=== PATIENT | female | born 1965 | race Caucasian/White ===

== ENCOUNTER 2019-10-17 09:19 | Outpatient (CLI) | payer OTHER ==
--- NOTE | 2019-10-17 14:10 | MRI ---
EXAM: MRI of the abdomen without and with contrast COMPARISON: None HISTORY: Abnormal LFTs and right-sided abdominal pain TECHNIQUE: Multiplanar multi sequence MR images were taken of the abdomen without and with IV contras t. [An MRCP was performed.] FINDINGS: Liver: No intrahepatic ductal dilatation. Small 1.2 cm focus of high T2 signal in the left lobe of th e liver demonstrates peripheral puddling and centripetal filling consistent with a small hemangioma. Normal signal without dropout on out of phase images. No abnormal enhancement. Gallbladder: A small 2 to 3 mm filling defect in the dependent aspect of the gallbladder may resent a small gallstone. Common bile duct: Normal caliber without filling defects Adrenal glands: Unremarkable. Kidneys: No hydronephrosis or focal renal lesions. No abnormal areas of enhancement. Spleen: Unremarkable. Pancreas: Unremarkable. No abnormal enhancement. Retroperitoneum: No enlarged lymph nodes Bones: No marrow signal abnormality. IMPRESSION: 1. Possible small gallstone within the gallbladder. 2. Hepatic hemangioma
== END 2019-10-17 09:20 | disposition home or self-care (01) ==
LOC: SCSMRI 09:19
PROVIDERS: ATTEND Internal Medicine Gastroenterology
DX: R10.9 Unspecified abdominal pain (principal); R94.5 Abnormal results of liver function studies; D18.03 Hemangioma of intra-abdominal structures
CPT/HCPCS: 74183

== ENCOUNTER 2020-01-09 16:05 | Inpatient (IN) | payer OTHER ==
[2020-01-09 18:06] LABS: #Basophils 0.1 thou/uL (0.0-0.2); #Eosinphils 0.2 thou/uL (0.0-0.7); #Lymphocytes 2.3 thou/uL (1.20-3.40); #Neutrophils 4.7 thou/uL (1.40-6.50); %Basophils 1.4 % (0.0-1.0); %Eosinophils 2.1 % (0.0-10.0); %Lymphocytes 27.5 % (21.0-51.0); %Monocytes 12.3 % (0.0-10.0); %Neutrophils 56.7 % (42.0-75.0); Hemoglobin 13.3 g/dL (12.0-16.0); Mean Corpuscular HGB CONC 33.7 g/dL (32.0-36.0); Mean Corpuscular Volume 98.1 fL (78.0-98.0); Mean Platelet Volume 8.4 fL (7.4-10.4); Platelet Count 200 thou/uL (130-400); RBC Distribution Width 13.8 % (11.5-14.5); Red Blood Cell (RBC) Count 4.02 mill/uL (4.20-5.40); White Blood Cell (WBC) Count 8.2 thou/uL (4.8-10.8)
--- NOTE | 2020-01-09 18:06 | ULT ---
EXAM: Right upper quadrant ultrasound PROVIDED CLINICAL HISTORY: Abdominal pain COMPARISON: None FINDINGS: Visualized portions of the pancreas appear normal. Liver demonstrates no mass or intrahepatic biliary ductal dilatation. Common duct is nondilated. Gallbladder demonstrates gallstones, appearing decompressed. Right kidney demonstrates no hydronephrosis or mass. IMPRESSION: Decompressed gallbladder. Gallstones.
[2020-01-09 18:33] LABS: ALT (SGPT) 1407 U/L (8-55); AST (SGOT) 1678 U/L (5-34); Albumin 3.6 g/dL (3.5-5.0); Alkaline Phosphatase 465 U/L (40-110); Anion Gap 12 mmol/L (10-20); BUN (Urea Nitrogen) 8 mg/dL (9.8-20.1); Bilirubin, Total 1.9 mg/dL (0.2-1.2); Calc. Creatinine Clearance 0 mL/min (70-130); Calcium 9.1 mg/dL (7.8-10.44); Carbon Dioxide 22 mmol/L (22-29); Chloride 108 mmol/L (98-107); Estimated GFR-MDRD 81; Globulin 4.4 g/dL (2.4-3.5); Glucose 94 mg/dL (70-105); Lipase 750 U/L (8-78); Potassium 3.8 mmol/L (3.5-5.1); Sodium 138 mmol/L (136-145)
[2020-01-09] MEDS ORDERED: Morphine 4 MG/ML VIAL ONE (19:46)
[2020-01-09] MEDS ORDERED: Ondansetron PF 4 MG/2 ML Vial ONE (19:47)
[2020-01-09 20:26] LABS: Bacteria/HPF None Seen HPF (None Seen); Bilirubin Negative (Negative); Blood, Urine Negative (Negative); Clarity Clear (Clear); Glucose, Urine (Dipstick) Normal (Negative); Leukocyte 250 Leu/uL (Negative); Nitrite Negative (Negative); Protein, Urine (Dipstick) 20 mg/dL (Neg-Trace); Squamous Epithelial 0-3 HPF (0-3); WBC/HPF 21-50 HPF (0-3)
[2020-01-09] MEDS ORDERED: Morphine 4 MG/ML VIAL SLOW IVP PRN (21:58)
[2020-01-09] MEDS ORDERED: Ondansetron PF 4 MG/2 ML Vial IVP PRN (21:58)
[2020-01-09] MEDS ORDERED: Ondansetron ODT 4 MG TAB SL PRN (21:58)
[2020-01-09 22:07] VITALS: BMI 25.8
[2020-01-10] MEDS: Lactated Ringer's 1,000 ML IV SCH ×2 (00:08→06:58)
[2020-01-10] MEDS ORDERED: FLU VACC QS2019-20(6MOS UP)/PF 60 MCG/0.5 ML SYRINGE IM ONE (09:00)
[2020-01-10] MEDS ORDERED: Morphine 2 MG/ML SYRINGE SLOW IVP PRN (09:43)
[2020-01-10] MEDS ORDERED: Ondansetron PF 4 MG/2 ML Vial IVP PRN (09:43)
[2020-01-10] MEDS ORDERED: Morphine 4 MG/ML VIAL SLOW IVP PRN (09:43)
[2020-01-10 09:58] LABS: #Basophils 0.1 thou/uL (0.0-0.2); #Eosinphils 0.2 thou/uL (0.0-0.7); #Lymphocytes 1.8 thou/uL (1.20-3.40); #Neutrophils 4.8 thou/uL (1.40-6.50); %Basophils 1.3 % (0.0-1.0); %Eosinophils 2.1 % (0.0-10.0); %Lymphocytes 23.2 % (21.0-51.0); %Monocytes 12.6 % (0.0-10.0); %Neutrophils 60.7 % (42.0-75.0); Hemoglobin 12.2 g/dL (12.0-16.0); Mean Corpuscular HGB CONC 33.3 g/dL (32.0-36.0); Mean Corpuscular Hemoglobin 32.8 pg (27.0-31.0); Mean Corpuscular Volume 98.6 fL (78.0-98.0); Mean Platelet Volume 8.5 fL (7.4-10.4); Platelet Count 183 thou/uL (130-400); RBC Distribution Width 13.9 % (11.5-14.5); Red Blood Cell (RBC) Count 3.72 mill/uL (4.20-5.40); White Blood Cell (WBC) Count 7.9 thou/uL (4.8-10.8)
[2020-01-10] MEDS ORDERED: Pantoprazole 40 MG VIAL IVP SCH (10:15)
[2020-01-10 10:22] LABS: ALT (SGPT) 1292 U/L (8-55); AST (SGOT) 1751 U/L (5-34); Albumin 3.1 g/dL (3.5-5.0); Alkaline Phosphatase 390 U/L (40-110); Anion Gap 12 mmol/L (10-20); BUN (Urea Nitrogen) 9 mg/dL (9.8-20.1); Bilirubin, Direct 1.5 mg/dL (0.1-0.3); Bilirubin, Total 2.2 mg/dL (0.2-1.2); Calc. Creatinine Clearance 107 mL/min (70-130); Calcium 8.7 mg/dL (7.8-10.44); Carbon Dioxide 22 mmol/L (22-29); Chloride 107 mmol/L (98-107); Estimated GFR-MDRD 85; Glucose 75 mg/dL (70-105); Lipase 346 U/L (8-78); Potassium 4.3 mmol/L (3.5-5.1); Sodium 137 mmol/L (136-145)
--- NOTE | 2020-01-10 10:50 | HP ---
CHIEF COMPLAINT: Mid epigastric and right upper quadrant pain, nausea. HISTORY OF PRESENT ILLNESS: This is a 54-year-old female, who developed upper abdominal pain and nausea in August, so they did an ultrasound that showed a probable polyp in the gallbladder, but her LFTs were bumped. So, they did an MRCP, it showed a small filling defect in the dependent gallbladder, possible stone. She was doing fine until yesterday when she developed recurrence of the pain, but it was worse. She went to the GI clinic, where they repeated the LFTs and they were bumped, so she was sent to the ER. An ultrasound was performed that showed this time definite gallstones. PAST MEDICAL HISTORY: Obesity, hyperlipidemia, and hypothyroidism. PAST SURGICAL HISTORY: She had a hysterectomy 10 years ago and arm surgery. MEDICATIONS: 1. Atorvastatin. 2. Levothyroxine. ALLERGIES: NO KNOWN DRUG ALLERGIES. SOCIAL HISTORY: She is , unemployed. No tobacco or alcohol. FAMILY HISTORY: Noncontributory. PHYSICAL EXAMINATION: VITAL SIGNS: Temperature 98.4, pulse 74, and blood pressure 106/67. GENERAL: She is awake and alert, in no apparent distress. She says her pain is better. HEENT: No jaundice. LUNGS: Clear. HEART: Regular rate and rhythm. ABDOMEN: Obese, soft, mildly tender in the right upper quadrant. No palpable mass. EXTREMITIES: Unremarkable. LABORATORY DATA: Her white count is 8.2, H and H are 13 and 39, and platelet count 200. Her electrolytes are fine, but her bilirubin is 1.9, AST of 1678, ALT of 1407, alkaline phosphatase of 465, and lipase is 750. ASSESSMENT: Possible biliary pancreatitis, but she is improved. PLAN: GI consult. We will repeat their LFTs. If they are getting better, would recommend lap jake with cholangiogram. If they are worse, I would recommend ERCP. Job ID: [id number]
[2020-01-10] MEDS ORDERED: Rocuronium Bromide 10 MG/ML (10ML VIAL) ONE (11:01)
[2020-01-10] MEDS ORDERED: PROPOFOL 200 MG/20 ML VIAL ONE (11:01)
[2020-01-10] MEDS ORDERED: Dexamethasone 20 MG/5 ML VIAL ONE (11:01)
[2020-01-10] MEDS ORDERED: PHENYLEPHRINE-NS 100 MCG/ML 10 ML SYRINGE ONE (11:01)
[2020-01-10] MEDS ORDERED: Lidocaine 1% PF 5 ML VIAL ONE (11:01)
[2020-01-10] MEDS ORDERED: Glycopyrrolate 0.2 MG/ML 5 ML SYRINGE ONE (11:01)
[2020-01-10] MEDS ORDERED: Ondansetron PF 4 MG/2 ML Vial ONE (11:01)
[2020-01-10] MEDS ORDERED: Lidocaine 2% Jelly 5 ML TUBE ONE (11:23)
[2020-01-10] MEDS ORDERED: Midazolam HCl 2 mg/2 ml Vial ONE (11:23)
[2020-01-10] MEDS ORDERED: Fentanyl 100 MCG/2 ML VIAL ONE (11:23)
[2020-01-10] MEDS ORDERED: CEFAZOLIN 2 GM in Premix Bag 1 BAG IVPB SCH ×2 (11:30→13:15)
[2020-01-10] MEDS ORDERED: Iothalamate Meglumine 60% 50 ML VIAL FS ONE (11:30)
[2020-01-10] MEDS ORDERED: Indomethacin 50 MG SUPP ONE (11:36)
[2020-01-10] MEDS ORDERED: Promethazine HCl 25 MG/ML VIAL IM PRN (13:10)
[2020-01-10] MEDS ORDERED: Ondansetron HCl/PF 4 MG/2 ML Vial IVP PRN (13:10)
[2020-01-10] MEDS ORDERED: Promethazine HCl 25 MG/ML VIAL SLOW IVP PRN (13:10)
--- NOTE | 2020-01-10 13:51 | OP ---
DATE OF PROCEDURE: 01/10/2020 PROCEDURE PERFORMED: Endoscopic retrograde cholangiopancreatography with sphincterotomy. PREOPERATIVE DIAGNOSES: Gallstone pancreatitis and increasing bilirubin. DESCRIPTION OF PROCEDURE: Informed consent was obtained from the patient. She was sedated with general anesthesia and placed in the prone position. The duodenoscope was advanced easily to the second portion of the duodenum, where the ampulla was identified and appeared unremarkable. The common bile duct was selectively cannulated easily on first attempt with the guidewire. The sphincterotome was advanced into the bile duct and cholangiogram revealed a 3 mm smooth common bile duct without filling defects. The intra and extrahepatic ducts were normal. The gallbladder filled and cholelithiasis was seen. A complete sphincterotomy was performed. Balloon sweep of the bile duct with a partially filled 9 mm balloon was performed. The bile duct was confirmed to be clear. Occlusion cholangiogram was clear. The balloon passed easily through the sphincterotomy without any resistance, and fluid was suctioned from the stomach, and the procedure was completed. IMPRESSION: 1. Cholangiogram shows a 3 mm common bile duct without obvious filling defects. There were normal intra and extrahepatic ducts. The gallbladder did fill showing cholelithiasis. 2. Complete sphincterotomy performed with good drainage of clear yellow bile. 3. Balloon sweep of the bile duct and occlusion cholangiogram confirmed the duct to be clear. The balloon passed easily through the sphincterotomy without any resistance. RECOMMENDATIONS: 1. Recheck liver tests in the morning. 2. Plan is for laparoscopic cholecystectomy and liver biopsy tomorrow. 3. I suspect she has autoimmune hepatitis is a primary reason for the elevated liver tests. This could be in addition to gallstone pancreatitis, however. Job ID: [id number] [facility]
[2020-01-10] MEDS: D5 1/2 NS w/20 mEq KCL 1,000 ML IV SCH ×2 (13:52→18:39)
--- NOTE | 2020-01-10 14:42 | CON ---
DATE OF CONSULTATION: 01/10/2020 CHIEF COMPLAINT: Abdominal pain and nausea. HISTORY OF PRESENT ILLNESS: Ms. Chase is a 54-year-old woman who developed nausea and a dull aching right upper quadrant constant abdominal pain back in August 2019. Her liver tests were completely normal in August 2018; however, with the onset of this abdominal pain back in August 2019, her ALT was up in the 1400 range with an AST of 958 and alkaline phosphatase of 288 and a normal bilirubin. She saw Dr. Campbell in GI Clinic. MRCP was obtained on 10/17/2019. The MRCP showed a hemangioma in the liver. A small 2 to 3 mm gallstone was noted in the gallbladder. The common bile duct was nondilated without obvious filling defects. Her liver tests when tested in the office in August had dropped down to normal alkaline phosphatase with an AST of 53 and ALT of 62 and a bilirubin of 0.3. Her pain then went away, she had no further nausea, no pain for about 2 months after that and then a week ago, she had recurrence of the pain. At this time, the pain was more severe than with previous episodes. She came into the office yesterday and was sent onto the emergency room for further care. Her labs were drawn and at this time, her AST was 1700, her ALT was 1400, and her alkaline phosphatase was 466 with an elevated bilirubin at 2.0. She had an ultrasound performed in the emergency room that again showed gallstones in the gallbladder, but a nondilated bile duct. She has also had bloating and aching epigastric abdominal pain and her lipase was noted to be elevated at 750 with an upper limit of normal at this lab of 78. She was given IV fluids and her pain is doing better today. She still has some nausea and discomfort. She has had no diarrhea, constipation, or blood in the stool. PAST MEDICAL HISTORY: Includes rheumatoid arthritis. She was treated with the Remicade in the past, but has not been on it for least 12 years. She has hyperlipidemia, has been on atorvastatin for that. She has been on the same medicine for at least a year and a half without any recent changes. She also has hypothyroidism. PAST SURGICAL HISTORY: Hysterectomy and arm surgery. FAMILY HISTORY: Negative for GI malignancy. SOCIAL HISTORY: No alcohol, tobacco, or drugs. ALLERGIES: NO KNOWN DRUG ALLERGIES. MEDICATIONS: At home prior to admission include: 1. Atorvastatin. 2. Levothyroxine. She has not taken any acetaminophen or NSAIDs. REVIEW OF SYSTEMS: Negative x10 systems reviewed, except as stated in history of present illness. No fever. PHYSICAL EXAMINATION: VITAL SIGNS: Temperature 98.4, pulse 74, and blood pressure 106/67. GENERAL: She is in no acute distress. Alert and oriented x3. HEENT: Eyes have no scleral icterus. Oropharynx is clear without lesions. No cervical or supraclavicular lymphadenopathy. LUNGS: Clear to auscultation bilaterally. HEART: Regular rate and rhythm without murmur. ABDOMEN: Soft. Mild tenderness in the right upper quadrant without guarding. Bowel sounds are present. EXTREMITIES: No lower extremity edema. NEUROLOGIC: Cranial nerves are grossly intact. LABORATORY DATA: White blood cell count 7.9, hemoglobin 12.2, platelets 183. Creatinine 0.72, calcium 8.7. Bilirubin 2.2, AST 1751, ALT 1292, alkaline phosphatase 390, lipase is 346 down from 750 yesterday. She did have a smooth muscle antibody that was moderately elevated at 34 on 08/28/2019. Viral hepatitis screen was negative at that time. Her globulin yesterday was elevated at 4.4. Today, her albumin is 7.0 with a total protein of 3.1 with a globulin of 3.9. IMPRESSION: 1. Gallstone pancreatitis. She has small stones measuring 2 to 3 mm in the gallbladder along with acute pancreatitis and acute elevation of her liver tests. Her bile duct is not dilated, however only small stones were seen. This would explain both the elevated liver tests and the acute pancreatitis. There is no alcohol history. 2. Abnormal liver function tests. The marked elevation of the transaminases would be more consistent with an alternative etiology. Autoimmune hepatitis could explain this. Her smooth muscle antibody was elevated in August. Her globulin was elevated. She has a history of rheumatoid arthritis, which has been untreated. Liver biopsy would be helpful in confirming this diagnosis and initiating treatment if indicated. If she ultimately requires a cholecystectomy for gallstones, then liver biopsy could be performed at that time. One factor that might be more suggestive of a biliary stone than the autoimmune hepatitis might be that her transaminases abruptly dropped from 1000 to 50s and 60s range with temporary resolution of her abdominal pain. Autoimmune hepatitis I would expect to be more persistent. With the bilirubin increasing, I think the index of suspicion is high enough for stone along with the pancreatitis that we should proceed with ERCP at this point. Repeat MRI might miss a 2 mm stone as was noted on previous imaging. RECOMMENDATIONS: 1. ERCP with sphincterotomy today. 2. If she does ultimately require cholecystectomy following that, then liver biopsy could be done at the same time. 3. I discussed the risks and benefits of ERCP in detail with Ms. Chase. This includes bleeding, infection, perforation, pancreatitis, and failure to cannulate. Job ID: [id number]
[2020-01-10] MEDS ORDERED: Promethazine HCl 12.5 MG in Sodium Chloride 0.9% 50 ML IVPB PRN (16:40)
[2020-01-10] MEDS ORDERED: Promethazine HCl 25 MG in Sodium Chloride 0.9% 50 ML IVPB PRN (16:44)
[2020-01-11] MEDS: D5 1/2 NS w/20 mEq KCL 1,000 ML IV SCH ×3 (04:34→16:12)
[2020-01-11 05:19] LABS: #Lymphocytes 1.3 thou/uL (1.20-3.40); #Monocytes 0.5 thou/uL (0.11-0.59); #Neutrophils 6.3 thou/uL (1.40-6.50); %Basophils 0.1 % (0.0-1.0); %Eosinophils 0.1 % (0.0-10.0); %Lymphocytes 15.6 % (21.0-51.0); %Monocytes 5.8 % (0.0-10.0); %Neutrophils 78.4 % (42.0-75.0); Hemoglobin 11.4 g/dL (12.0-16.0); Mean Corpuscular HGB CONC 33.1 g/dL (32.0-36.0); Mean Corpuscular Hemoglobin 32.5 pg (27.0-31.0); Mean Corpuscular Volume 98.2 fL (78.0-98.0); Mean Platelet Volume 8.5 fL (7.4-10.4); Platelet Count 186 thou/uL (130-400); RBC Distribution Width 13.8 % (11.5-14.5); White Blood Cell (WBC) Count 8.1 thou/uL (4.8-10.8)
[2020-01-11 05:57] LABS: ALT (SGPT) 1091 U/L (8-55); AST (SGOT) 1163 U/L (5-34); Alkaline Phosphatase 364 U/L (40-110); Bilirubin, Direct 0.9 mg/dL (0.1-0.3); Bilirubin, Total 1.3 mg/dL (0.2-1.2); Lipase 99 U/L (8-78); Protein, Total 6.8 g/dL (6.0-8.3)
[2020-01-11] MEDS ORDERED: CEFAZOLIN 2 GM in Premix Bag 1 BAG IVPB SCH (06:00)
[2020-01-11] MEDS ORDERED: Fentanyl 100 MCG/2 ML VIAL ONE ×3 (07:28→10:05)
[2020-01-11] MEDS ORDERED: Lidocaine 1% w/Epinephrine 1:100K 20 ML VIAL ONE (07:51)
[2020-01-11] MEDS ORDERED: Bupivacaine 0.25% HCL 30 ML VIAL ONE (07:51)
[2020-01-11] MEDS ORDERED: EPINEPHrine 1 MG/ML AMP ONE (07:51)
[2020-01-11] MEDS ORDERED: Promethazine HCl 25 MG/ML VIAL SLOW IVP PRN (08:50)
[2020-01-11] MEDS ORDERED: Meperidine HCl/PF 25 MG/ML VIAL SLOW IVP PRN (08:50)
[2020-01-11] MEDS ORDERED: Ondansetron HCl/PF 4 MG/2 ML Vial IVP PRN (08:50)
[2020-01-11] MEDS ORDERED: HYDROmorphone 2 MG/ML VIAL SLOW IVP PRN (08:50)
[2020-01-11] MEDS ORDERED: HYDROcodone/Acetaminophen 10/325 mg Tablet PO PRN ×2 (09:40)
[2020-01-11] MEDS ORDERED: Dextrose 50% Abboject 50 ML SYRINGE SLOW IVP PRN (09:40)
[2020-01-11] MEDS ORDERED: Promethazine HCl 25 MG/ML VIAL IM PRN (09:40)
[2020-01-11] MEDS ORDERED: Dextrose 5% in Water 1,000 ML IV PRN (09:40)
[2020-01-11] MEDS ORDERED: Promethazine HCl 25 MG/ML VIAL ONE (09:40)
[2020-01-11] MEDS ORDERED: Calcium Carbonate 500 MG ChewTAB PO PRN (09:40)
[2020-01-11] MEDS ORDERED: Mag-Al 1200 mg/1200 mg/30 ML UDCUP PO PRN (09:40)
[2020-01-11] MEDS ORDERED: hydrALAZINE 20 MG/ML VIAL SLOW IVP PRN (09:40)
[2020-01-11] MEDS ORDERED: Ondansetron PF 4 MG/2 ML Vial IVP PRN (09:40)
[2020-01-11] MEDS ORDERED: D5 1/2 NS w/20 mEq KCL 0 ML ONE (10:08)
[2020-01-11] MEDS ORDERED: Rocuronium Bromide 10 MG/ML (10ML VIAL) ONE (11:10)
[2020-01-11] MEDS ORDERED: PROPOFOL 200 MG/20 ML VIAL ONE (11:10)
[2020-01-11] MEDS ORDERED: Ondansetron PF 4 MG/2 ML Vial ONE (11:10)
[2020-01-11] MEDS ORDERED: Lidocaine 1% PF 5 ML VIAL ONE (11:10)
[2020-01-11] MEDS ORDERED: Ketorolac Tromethamine 30 MG/ML VIAL ONE (11:10)
[2020-01-11] MEDS ORDERED: Dexamethasone 20 MG/5 ML VIAL ONE (11:10)
[2020-01-11] MEDS ORDERED: Glycopyrrolate 0.2 MG/ML 5 ML SYRINGE ONE (11:10)
[2020-01-11] MEDS: Pantoprazole 40 MG VIAL IVP SCH (12:07)
[2020-01-11] MEDS: cefOXitin Sodium/Dextrose,Iso 2 GM in Premix Bag 1 BAG IVPB SCH ×2 (13:57→21:55)
--- NOTE | 2020-01-11 20:00 | PRG ---
DATE OF SERVICE: 01/11/2020 SUBJECTIVE: Ms. Chase underwent cholecystectomy today. She tolerated the procedure well and she had a solid diet this evening, which she is also tolerating well. She has some bloating. No nausea or vomiting. OBJECTIVE: VITAL SIGNS: Temperature is 98.0, pulse 53, and blood pressure 112/69. GENERAL: She is in no acute distress. Alert and oriented x3. HEENT: Eyes have no scleral icterus. Oropharynx is clear without lesions. NECK: No cervical or supraclavicular lymphadenopathy. LUNGS: Clear to auscultation bilaterally. HEART: Regular rate and rhythm without murmur. ABDOMEN: Soft, nontender, except around the surgical sites. Bowel sounds are present. No guarding. EXTREMITIES: No lower extremity edema. LABORATORY DATA: Hemoglobin 11.4, platelets 186, and white blood cell count 8.1. Bilirubin 1.3, AST 1163, ALT 1091, alkaline phosphatase 364, albumin 3.0, and lipase is down to 99. IMPRESSION: 1. Suspected gallstone pancreatitis, status post sphincterotomy. Her liver tests are trending down today. 2. Cholelithiasis, status post laparoscopic cholecystectomy today. 3. Cirrhosis of the liver. Her liver was confirmed to be nodular visibly at the time of the cholecystectomy. Liver biopsy was performed. I suspect she has autoimmune hepatitis given the elevated globulin, transaminases over 1000, duration of intermittently high transaminases, and elevated smooth muscle antibody previously. She has a history of rheumatoid arthritis. RECOMMENDATIONS: 1. We will wait for the liver biopsy results. Once those are back and if autoimmune hepatitis is confirmed, then she can start treatment with prednisone. 2. Check alpha fetoprotein, hepatitis A total antibody, and hepatitis B surface antibody to establish if she needs to be vaccinated for hepatitis and hepatitis B and for hepatoma screening. 3. Anticipate discharge home tomorrow. She will call the office for followup in our office within the next couple of weeks. Job ID: [id number]
[2020-01-11] MEDS: Famotidine 20 MG TAB PO SCH (20:16)
[2020-01-11] MEDS: Famotidine/PF 20 mg/2ml Vial SLOW IVP SCH (20:19)
[2020-01-12] MEDS: D5 1/2 NS w/20 mEq KCL 1,000 ML IV SCH ×2 (03:38→09:24)
[2020-01-12 05:11] LABS: #Neutrophils 12.6 thou/uL (1.40-6.50); %Basophils 0.2 % (0.0-1.0); %Eosinophils 0.1 % (0.0-10.0); %Lymphocytes 12.7 % (21.0-51.0); %Monocytes 6.2 % (0.0-10.0); %Neutrophils 80.7 % (42.0-75.0); Mean Corpuscular HGB CONC 33.2 g/dL (32.0-36.0); Mean Corpuscular Hemoglobin 33.2 pg (27.0-31.0); Mean Corpuscular Volume 99.8 fL (78.0-98.0); Mean Platelet Volume 8.6 fL (7.4-10.4); Platelet Count 207 thou/uL (130-400); RBC Distribution Width 14.2 % (11.5-14.5); Red Blood Cell (RBC) Count 3.31 mill/uL (4.20-5.40); White Blood Cell (WBC) Count 15.6 thou/uL (4.8-10.8)
[2020-01-12] MEDS: cefOXitin Sodium/Dextrose,Iso 2 GM in Premix Bag 1 BAG IVPB SCH (05:22)
[2020-01-12 05:30] LABS: ALT (SGPT) 787 U/L (8-55); AST (SGOT) 684 U/L (5-34); Albumin 2.7 g/dL (3.5-5.0); Alkaline Phosphatase 309 U/L (40-110); Anion Gap 9 mmol/L (10-20); BUN (Urea Nitrogen) 10 mg/dL (9.8-20.1); Calc. Creatinine Clearance 104 mL/min (70-130); Calcium 8.3 mg/dL (7.8-10.44); Carbon Dioxide 21 mmol/L (22-29); Chloride 110 mmol/L (98-107); Estimated GFR-MDRD 82; Globulin 3.7 g/dL (2.4-3.5); Glucose 99 mg/dL (70-105); Lipase 68 U/L (8-78); Potassium 4.6 mmol/L (3.5-5.1); Protein, Total 6.4 g/dL (6.0-8.3); Sodium 135 mmol/L (136-145)
--- NOTE | 2020-01-12 07:48 | RAD ---
XR ERCP History: Stones Comparison: Gallbladder ultrasound prior day Findings: Multiple spot images were obtained from the procedure room. There is contrast filling the c ommon bile duct cystic duct and gallbladder. Impression: Fluoroscopy for procedural purposes.
[2020-01-12] MEDS: Pantoprazole 40 MG VIAL IVP SCH (08:12)
[2020-01-12] MEDS: Famotidine 20 MG TAB PO SCH (08:12)
[2020-01-12 08:33] VITALS: BP 115/72
[2020-01-12] MEDS ORDERED: Enoxaparin Sodium 40 MG/0.4 ML SYRINGE SC SCH (09:00)
[2020-01-12] MEDS: Famotidine/PF 20 mg/2ml Vial SLOW IVP SCH (09:23)
[2020-01-12 09:33] VITALS: TEMP 98
--- NOTE | 2020-01-12 10:04 | OP ---
DATE OF PROCEDURE: 01/11/2020 PREOPERATIVE DIAGNOSIS: Biliary pancreatitis with possible hepatitis. PROCEDURE PERFORMED: Laparoscopic cholecystectomy with wedge liver biopsy. INDICATIONS: The patient is a 54-year-old female, who has been having right upper quadrant pain with elevated liver function tests under evaluation by the GI doctors. She came in through the emergency room with an exacerbation of pain and elevation of lipase, consistent with biliary pancreatitis. Ultrasound showed gallstones. She underwent ERCP yesterday. They did not see any stones in the duct. FINDINGS: Nodular liver, small caliber cystic duct. DESCRIPTION OF PROCEDURE: After informed consent was obtained, the patient was taken to the operating room and given general endotracheal anesthesia, placed in supine position. Abdomen was prepped and draped in usual fashion. Local anesthesia infiltrated subcutaneously and deep. A subumbilical incision was performed, subcu divided sharply. The fascia was grasped. Two stay sutures of 0 Vicryl placed on either side of midline. Midline incised, digital palpation revealed no local adhesions. A blunt 12 mm trocar inserted. Pneumoperitoneum was created to a pressure of 15 mmHg. 0-degree laparoscope inserted under direct vision. Three 5 mm ports were placed subcostally. The gallbladder was grasped and advanced superiorly. The peritoneum was opened and the cystic duct, artery, and critical view were exposed. The cystic duct and artery were triply ligated with hemoclips and divided. The gallbladder removed from its fossa utilizing electrocautery, removed from the abdomen through the umbilical port. Hemostasis was achieved with electrocautery. Using Metzenbaum scissors, a wedge was taken off the right mid inferior liver edge. This was sent fresh to Pathology. Hemostasis was achieved with electrocautery. The abdomen was irrigated. Irrigation fluid removed. Hemostasis was assured. Trocars and retractors were removed. Fascia closed with interrupted 0 Vicryl suture. The skin closed with interrupted 4-0 Rapide. Dermabond applied. The patient tolerated the procedure well, transferred to Recovery in good condition. Sponge and needle count verified correct x2. Job ID: [id number]
--- NOTE | 2020-01-12 16:10 | DIS ---
DATE OF ADMISSION: 01/09/2020 DATE OF DISCHARGE: 01/12/2020 DISCHARGE DIAGNOSIS: 1. Biliary pancreatitis. 2. Autoimmune hepatitis. PROCEDURES DURING ADMISSION: Endoscopic retrograde cholangiopancreatography with sphincterotomy, laparoscopic cholecystectomy with liver biopsy. HOSPITAL COURSE: The patient was admitted, given IV fluids, IV hydration, n.p.o. status. GI was consulted. Her LFTs went up, so she was taken to ERCP. They did not definitely see any kind of filling defects. Postprocedure, she did fine. She was taken to the operating room the next day for laparoscopic cholecystectomy and liver biopsy. Postoperatively, she is doing well. She is tolerating her diet. She is passing gas. She is discharged home in good condition on hydrocodone and Zofran. She will follow up with me in 2 weeks. Job ID: [id number]
== END 2020-01-12 11:24 | disposition home or self-care (01) | DRG 417 ==
LOC: ERS 16:05 → SJJU 21:52
PROVIDERS: ADMIT Surgery; ATTEND Surgery
PROC: 0F798ZZ Dilation of Common Bile Duct, Via Natural or Artificial Opening Endoscopic (ICD-10-PCS; 2020-01-10)
PROC: BF10YZZ Fluoroscopy of Bile Ducts using Other Contrast (ICD-10-PCS; 2020-01-10)
PROC: 0FT44ZZ Resection of Gallbladder, Percutaneous Endoscopic Approach (ICD-10-PCS; principal; 2020-01-11)
PROC: 0FB04ZX Excision of Liver, Percutaneous Endoscopic Approach, Diagnostic (ICD-10-PCS; 2020-01-11)
DX: K75.4 Autoimmune hepatitis (principal); K85.10 Biliary acute pancreatitis without necrosis or infection; K80.10 Calculus of gallbladder with chronic cholecystitis without obstruction; E78.5 Hyperlipidemia, unspecified; E03.9 Hypothyroidism, unspecified; M06.9 Rheumatoid arthritis, unspecified; E66.9 Obesity, unspecified; K74.60 Unspecified cirrhosis of liver; Z90.710 Acquired absence of both cervix and uterus; Z79.890 Hormone replacement therapy; Z79.899 Other long term (current) drug therapy; Z68.25 Body mass index [BMI] 25.0-25.9, adult
CPT/HCPCS: 36415; 74330; 76705; 80048; 80053; 80076; 81003; 81015; 82150; 83690; 85025; 88304; 88307; 88313; 96361; 96374; 96375; C9113; J0171; J0690; J0694; J1100; J1610; J1650; J1885; J2001; J2250; J2270; J2405; J2550; J2704; J3010; S0020

== ENCOUNTER 2021-02-02 13:38 | Outpatient (CLI) | payer OTHER | END 2021-02-02 13:39 | disposition home or self-care (01) | LOC: BICMAMMO 13:38 | PROVIDERS: ATTEND Family Medicine | DX: Z12.31 Encounter for screening mammogram for malignant neoplasm of breast (principal); Z13.820 Encounter for screening for osteoporosis; Z78.0 Asymptomatic menopausal state | CPT/HCPCS: 77063; 77067; 77080 ==